=== PATIENT | female | born 1990 | race African-American/Black ===

== ENCOUNTER 2023-02-26 08:37 | Emergency (ER) | payer MEDICAID ==
[~2023-02-26] VITALS: Ht 162.6 cm; Wt 56.0 kg
[2023-02-26 08:39] VITALS: BP 116/84; PULSE 69; RESP 20; TEMP 98.5; O2SAT 100
[2023-02-26] MEDS ORDERED: CEPH500C2 MT (09:06)
[2023-02-26] MEDS ORDERED: ACET-2708 MT (09:06)
== END 2023-02-26 09:55 | disposition home or self-care (01) ==
LOC: ER 08:37
DX: L03.113 Cellulitis of right upper limb (principal); E11.9 Type 2 diabetes mellitus without complications; E78.00 Pure hypercholesterolemia, unspecified
CPT/HCPCS: 99281

== ENCOUNTER 2024-01-02 14:25 | Emergency (ER) | payer BC, MEDICAID ==
[~2024-01-02] VITALS: Ht 154.9 cm; Wt 53.0 kg
[~2024-01-02 14:25] MED LIST: ACET-2708 MT; CEPH500C2 MT
[2024-01-02 14:27] VITALS: O2SAT 100
[2024-01-02] MEDS ORDERED: METH-653 MT (16:52)
[2024-01-02] MEDS ORDERED: IBUP-2029 MT (16:52)
[2024-01-02 17:58] VITALS: BP 126/57; PULSE 60; RESP 18; TEMP 98.7
== END 2024-01-02 18:00 | disposition home or self-care (01) ==
LOC: ER 14:25
DX: S00.01XA Abrasion of scalp, initial encounter (principal); E11.9 Type 2 diabetes mellitus without complications; E78.00 Pure hypercholesterolemia, unspecified; V49.9XXA Car occupant (driver) (passenger) injured in unspecified traffic accident, initial encounter; Y93.89 Activity, other specified; Y92.89 Other specified places as the place of occurrence of the external cause; Y99.8 Other external cause status
CPT/HCPCS: 99283